=== PATIENT | male | born 1945 | race Caucasian/White ===

== ENCOUNTER → 2016-11-20 | Outpatient (CLI) | payer MEDICARE, BC ==
[~2016-11-20] MED LIST: ASPIRIN81 M1 PO; AVODART0.5 MG PO; BENICAR20 MG PO; CENTRUM SILVER1 EAC1 PO; CENTRUM SILVER1 EAC3 PO; CRANBERRY TABL1 EACH PO; DEXILANT60 MG PO; DOCUSATE SODIU100 MG PO; FIBERCON625 MG PO; FUROSEMIDE20 MG PO; GABAPENTIN600 MG PO; IRBESARTAN150 MG PO; IRON45 MG PO; JANUVIA100 MG PO; LASIX20 MG PO; LOPRESSOR25 MG PO; METFORMIN HCL500 MG PO; METOPROLOL PO; METOPROLOL TART50 MG PO; OMEGA 3 1,0001 EACH PO; PROTONIX40 MG PO; SIMVASTATIN80 MG PO; ZOCOR80 MG PO
== END | disposition home or self-care (01) ==
LOC: CDC 08:47
DX: R94.31 Abnormal electrocardiogram [ECG] [EKG] (principal)
CPT/HCPCS: 93000

== ENCOUNTER 2016-11-26 10:58 | Emergency (ER) | payer OTHER, BC ==
[~2016-11-26] VITALS: Ht 180.3 cm; Wt 169.1 kg
[~2016-11-26 10:58] MED LIST changes: -CENTRUM SILVER1 EAC3 PO
[2016-11-26 12:10] LABS: HEMATOCRIT 38.9 % (38.0-50.0); MCH 31.4 PG (29.0-34.0); MCHC 33.7 G/DL (30.0-36.0); MCV 93.3 FL (86-99); MEAN PLAT.VOLUME 9.9 uM^3 (9.0-12.4); PLATELET COUNT 236 K/uL (156-360); RBC DIS.WIDTH-CV 12.7 % (11.8-14.6); RBC DIS.WIDTH-SD 43.1 % (39-53); RED BLOOD COUNT 4.17 M/uL (4.00-5.50)
[2016-11-26 12:21] LABS: CHLORIDE 103 mEq/L (99-109); POTASSIUM 4.5 mEq/L (3.7-5.4); SODIUM 138 mEq/L (136-147)
[2016-11-26 12:23] LABS: GLUCOSE 181 mg/dL (70-99)
[2016-11-26 12:24] LABS: ANION GAP 12 MEQ/L (2-14)
[2016-11-26 12:25] LABS: TOTAL BILIRUBIN 0.6 mg/dL (0.0-1.0)
[2016-11-26 12:27] LABS: ALKALINE PHOSPHATASE 96 IU/L (3-129); GFR ESTIMATE (CALCULATED) 53 mL/min/
[2016-11-26 12:28] LABS: UREA NITROGEN (BUN) 23 mg/dL (9-23)
[2016-11-26 12:42] LABS: ADD MIUA? YES; BILIRUBIN NEGATIVE; BLOOD LARGE; COLOR YELLOW ((YELLOW)); GLUCOSE (STRIP) 50; KETONES NEGATIVE; LEUKOCYTES TRACE; NITRITE NEGATIVE; PROTEIN (STRIP) NEGATIVE; SPECIFIC GRAVITY 1.012 (1.000-1.030); UROBILINOGEN 0.2 MG/DL (0.2-1.0)
[2016-11-26 12:48] LABS: BACTERIA RARE /HPF; EPITHELIAL CELLS RARE /HPF; MUCUS TRACE /LPF; RED BLOOD CELLS TNTC /HPF (0-5); UCUL ADDED? NO
[2016-11-26 14:37] VITALS: BP 138/74
== END 2016-11-26 14:45 | disposition home or self-care (01) ==
LOC: EME 10:58
DX: R33.9 Retention of urine, unspecified (principal); E11.9 Type 2 diabetes mellitus without complications; E78.5 Hyperlipidemia, unspecified; I10 Essential (primary) hypertension; K21.9 Gastro-esophageal reflux disease without esophagitis; Z87.891 Personal history of nicotine dependence; Z98.61 Coronary angioplasty status; Z79.84 Long term (current) use of oral hypoglycemic drugs; Z79.82 Long term (current) use of aspirin
CPT/HCPCS: 80053; 81003; 85027; 99281; 99283

== ENCOUNTER 2016-12-07 08:34 | Day surgery (SDC) | payer OTHER, BC ==
[~2016-12-07] VITALS: Ht 180.3 cm; Wt 163.0 kg
[~2016-12-07 08:34] MED LIST changes: +CENTRUM SILVER1 EAC3 PO
[2016-12-07] MEDS ORDERED: LO-DOSE ASPIRIN81 M2 PO (09:08)
[2016-12-07 09:22] LABS: POINT-OF-CARE METER ID UU14174212
[2016-12-07] MEDS ORDERED: ALEVE220 M2 PO (09:30)
[2016-12-07] MEDS ORDERED: ZYRTEC10 M2 PO (09:34)
[2016-12-07 09:38] VITALS: BP 108/75
[2016-12-07 12:18] LABS: POINT-OF-CARE METER ID UU13113675
[2016-12-07 13:31] VITALS: BP 142/56
[2016-12-07 14:35] VITALS: BP 143/64
[2016-12-07 16:35] VITALS: BP 155/69
[2016-12-08] MEDS ORDERED: KEFLEX500 MG PO (06:50)
== END 2016-12-07 17:05 | disposition home or self-care (01) ==
LOC: SDC
PROVIDERS: Urology
PROC: 0T7D8ZZ Dilation of Urethra, Via Natural or Artificial Opening Endoscopic (ICD-10-PCS; principal; 2016-12-07)
DX: N35.9 Urethral stricture, unspecified (principal); R39.12 Poor urinary stream; N47.1 Phimosis; E11.9 Type 2 diabetes mellitus without complications; I10 Essential (primary) hypertension; I25.10 Atherosclerotic heart disease of native coronary artery without angina pectoris; Z95.1 Presence of aortocoronary bypass graft; G47.30 Sleep apnea, unspecified; Z87.891 Personal history of nicotine dependence; Z79.82 Long term (current) use of aspirin
CPT/HCPCS: 82948; C1769; J1580; J2405; J7050

== ENCOUNTER 2016-12-08 02:02 | Emergency (ER) | payer OTHER, BC ==
[~2016-12-08] VITALS: Ht 180.3 cm; Wt 163.6 kg
[~2016-12-08 02:02] MED LIST changes: +ALEVE220 M2 PO; +LO-DOSE ASPIRIN81 M2 PO; +ZYRTEC10 M2 PO
[2016-12-08 03:49] LABS: CHLORIDE 103 mEq/L (99-109); POTASSIUM 4.3 mEq/L (3.7-5.4); SODIUM 137 mEq/L (136-147)
[2016-12-08 03:50] LABS: GLUCOSE 206 mg/dL (70-99)
[2016-12-08 03:52] LABS: ANION GAP 12 MEQ/L (2-14)
[2016-12-08 03:54] LABS: GFR ESTIMATE (CALCULATED) 53 mL/min/
[2016-12-08 03:55] LABS: UREA NITROGEN (BUN) 16 mg/dL (9-23)
[2016-12-08 05:47] LABS: EOSINOPHIL (%) 0.6 % (0-5); EOSINOPHIL COUNT 0.1 K/uL (0-0.3); HEMATOCRIT 38.2 % (38.0-50.0); IMMATURE GRANULOCYTE (%) 0.8 % (0.0-0.7); IMMATURE GRANULOCYTE COUNT 0.1 K/uL; INSTRUMENT ABS NEUTROPHIL CT 8.6 K/uL; LYMPHOCYTE COUNT 0.7 K/uL (1.0-2.8); MCH 31.8 PG (29.0-34.0); MCHC 33.8 G/DL (30.0-36.0); MCV 94.1 FL (86-99); MONOCYTE COUNT 0.8 K/uL (0-0.8); NEUTROPHIL COUNT 8.6 K/uL (1.8-6.4); PLATELET COUNT 218 K/uL (156-360); RBC DIS.WIDTH-CV 12.9 % (11.8-14.6); RBC DIS.WIDTH-SD 44.8 % (39-53); RED BLOOD COUNT 4.06 M/uL (4.00-5.50); WHITE BLOOD COUNT 10.3 K/uL (4.1-10.2)
[2016-12-08 06:19] LABS: ADD MIUA? YES; BILIRUBIN NEGATIVE; BLOOD LARGE; COLOR YELLOW ((YELLOW)); GLUCOSE (STRIP) 50; KETONES NEGATIVE; LEUKOCYTES MODERATE; NITRITE NEGATIVE; PROTEIN (STRIP) 100; SPECIFIC GRAVITY 1.028 (1.000-1.030); UROBILINOGEN 0.2 MG/DL (0.2-1.0)
[2016-12-08 06:45] LABS: EPITHELIAL CELLS 1+ /HPF; RED BLOOD CELLS 15-20 /HPF (0-5); WHITE BLOOD CELLS 15-20 /HPF (0-5)
[2016-12-08 06:46] LABS: BACTERIA 1+ /HPF; CRYSTALS PRESENT; MUCUS NONE SEEN /LPF; UCUL ADDED? NO; URIC ACID CRYSTALS 1+ /HPF
[2016-12-08] MEDS ORDERED: KEFLEX500 MG PO (06:50)
[2016-12-08 07:37] VITALS: BP 140/80
== END 2016-12-08 07:38 | disposition home or self-care (01) ==
LOC: EME 02:02
PROVIDERS: Emergency Medicine
DX: N48.89 Other specified disorders of penis (principal); M54.5 Low back pain; Z98.890 Other specified postprocedural states; E11.9 Type 2 diabetes mellitus without complications; E78.5 Hyperlipidemia, unspecified; I10 Essential (primary) hypertension; K21.9 Gastro-esophageal reflux disease without esophagitis; Z98.61 Coronary angioplasty status; Z87.891 Personal history of nicotine dependence
CPT/HCPCS: 74177; 80048; 81003; 85025; 99281; 99284; J2270; J7030